=== PATIENT | female | born 1950 | race Caucasian/White ===

== ENCOUNTER 2017-09-28 10:51 | Outpatient (CLI) | payer MEDICARE | END 2017-09-28 10:52 | disposition home or self-care (01) | LOC: BICMAMMO 10:51 | PROVIDERS: ATTEND Family Medicine | DX: N63.20 Unspecified lump in the left breast, unspecified quadrant (principal); N63.10 Unspecified lump in the right breast, unspecified quadrant; Z80.3 Family history of malignant neoplasm of breast; N64.89 Other specified disorders of breast | CPT/HCPCS: 77066; G0279 ==

== ENCOUNTER 2018-11-08 10:32 | Outpatient (CLI) | payer MEDICARE ==
--- NOTE | 2018-11-08 14:21 | CT ---
CT CHEST PERFORMED WITHOUT CONTRAST ENHANCEMENT: Date: 11/08/18 HISTORY: Lung cancer screening. Smoking history. FINDINGS: The lungs are clear of any infiltrative process. Minimal atelectatic change seen within the left base . No pulmonary nodules are identified. Mediastinal structures appear unremarkable. Some very minimal coronary calcifications are present. Visualized liver parenchyma shows no focal findings. Both adrenal glands are enlarged. They are of low attenuation. The right adrenal gland is the larger of the two, it measures 4.[address] Hounsfield unit numbers are most suggestive of adenomas. IMPRESSION: 1. Lung-RADS Category 1 - Negative. 2. Category S. This designation is related to the presence of bilateral adrenal masses, most likely adenomas. POS: [facility]
== END 2018-11-08 10:33 | disposition home or self-care (01) ==
LOC: BICCT 10:32
PROVIDERS: ATTEND Family Medicine
DX: Z12.2 Encounter for screening for malignant neoplasm of respiratory organs (principal)
CPT/HCPCS: 71250

== ENCOUNTER 2018-11-08 10:37 | Outpatient (CLI) | payer MEDICARE ==
--- NOTE | 2018-11-08 12:52 | MMO ---
Bilateral MAMMO Bilat Screen [facility]. CLINICAL HISTORY: Patient is 68 years old and is seen for screening. The patient has the following family history of breast cancer: maternal grandmother. The patient has no personal history of cancer. The patient has a history of right Excisional Biopsy in ? - benign. VIEWS: The views performed were: bilateral craniocaudal with tomosynthesis and bilateral mediolateral oblique with tomosynthesis. FILMS COMPARED: The present examination has been compared to prior imaging studies performed at [facility] on 06/12/2015, 12/12/2015, 06/18/2016, 02/27/2017 and 09/28/2017. MAMMOGRAM FINDINGS: There are scattered fibroglandular densities. Finding 1: There are stable post operative changes seen in the right breast. Finding 2: There are stable nodules seen in both breasts. There are no suspicious masses, suspicious calcifications, or new areas of architectural distortion. IMPRESSION: THERE IS NO MAMMOGRAPHIC EVIDENCE OF MALIGNANCY. A ROUTINE FOLLOW-UP MAMMOGRAM IN 1 YEAR IS RECOMMENDED. THE RESULTS OF THIS EXAM WERE SENT TO THE PATIENT. ACR BI-RADS Category 2 - Benign finding MAMMOGRAPHY NOTE: 1. A negative mammogram report should not delay a biopsy if a dominant of clinically suspicious mass is present. 2. Approximately 10% to 15% of breast cancers are not detected by mammography. 3. Adenosis and dense breasts may obscure an underlying neoplasm.
== END 2018-11-08 10:38 | disposition home or self-care (01) ==
LOC: BICMAMMO 10:37
PROVIDERS: ATTEND Family Medicine
DX: Z12.31 Encounter for screening mammogram for malignant neoplasm of breast (principal); Z80.3 Family history of malignant neoplasm of breast
CPT/HCPCS: 77063; 77067